=== PATIENT | female | born 2000 | race Caucasian/White ===

== ENCOUNTER 2024-04-19 20:23 | Emergency (ER) | payer OTHER, SELFPAY ==
[2024-04-19 20:54] VITALS: BP 139/88; PULSE 90; TEMP 37.1; O2SAT 98; BMI 33.7
--- NOTE | 2024-04-19 21:13 | ECG_ITS ---
[facility] Test Date: 2024-04-19 Pat Name: HEIDY LOPEZ Department: Room: - Gender: Female Nurse Practitioner: : 2000 Requested By: HELEN MONTESINOS Order Number: [id number] Reading MD: HELEN MONTESINOS Measurements Intervals [place] Rate: 79 P: 46 AR: 148 QRS: 56 QRSD: 86 T: 61 QT: 372 QTc: 406 Interpretive Statements 1100 Sinus rhythm 8102 Low QRS voltage in chest leads 9120 atypical ECG No previous ECG available for comparison Electronically Signed On 04-24-2024 6:51:41 EST by HELEN MONTESINOS
--- NOTE | 2024-04-19 21:31 | ED.GENADUL1 ---
HPI HPI - General Adult General Chief complaint: Headache Stated complaint: SOB, RIGHT SIDE TINGLING, HEADACHE Time Seen by Provider: 04/19/24 20:30 Source: patient and family (mother) Mode of arrival: walk-in Limitations: no limitations History of Present Illness HPI narrative: 23-year-old female presents to the emergency department with mother with complaint of shortness of breath, numbness, tingling. States she had laid down, was attempting to fall asleep, was on her back when she started developing shortness of breath. States history of panic attacks, but feels like this is somewhat different. Also experiencing some numbness, tingling going down her right arm and to the anterior aspect of her right moyer into her foot. + Right upper back and lower back pain. Has had some chronic back problems in the past. Also complaining of headache. Quality:?As above Severity:?Moderate Timing:?As above, shortness of breath has resolved. Still having a little numbness and tingling Context: Normal setting and activity? Modifying factors:?None Associated symptoms: As above Related Data Home Medications ?Medication ?Instructions ?Recorded ?Confirmed buspirone 15 mg tablet mg 04/19/24 desvenlafaxine succinate 100 mg mg PO 04/19/24 tablet,extended release 24 hr lisdexamfetamine 50 mg capsule mg 04/19/24 propranolol 40 mg tablet mg 04/19/24 Previous Rx's ?Medication ?Instructions ?Recorded cyclobenzaprine 5 mg tablet 5 - 10 mg (1 - 2 x 5 mg) PO TID 04/19/24 PRN muscle spasm #15 tabs lidocaine 5 % topical patch 1 patch topical DAILY #15 ea 04/19/24 (Lidoderm) prednisone 20 mg tablet 40 mg (2 x 20 mg) PO DAILY #10 tabs 04/19/24 Allergies Allergy/AdvReac Type Severity Reaction Status Date / Time No Known Drug Allergies Allergy Verified 04/19/24 20:59 Opioid HPI Opioid Management Most Recent Opioid Data: No Data to Display Review of Systems ROS Narrative CONST: Denies fever, chills HENT: Denies congestion, sore throat EYES: Denies eye redness, visual disturbance RESP: + shortness. Denies cough CV: Denies chest pain, palpitations GI: Denies abd pain, nausea, vomiting MS: + back pain. No extremity injury SKIN: Denies color change, rash NEURO: + numbness, tingling. Denies weakness PFSH PFSH Social History Little interest or pleasure in doing things: not at all Feeling down, depressed, or hopeless: not at all Exam Narrative Exam Narrative: Vital signs reviewed Nurses notes noted CONST: Nontoxic, well appearing, well nourished, in no distress.? No diaphoresis.?? HENT: normocephalic, atraumatic, moist mucous membrane, no abnormalities of the nose noted, hearing normal EYES: normal appearing conjunctiva, no apparent discharge bilat, PERRL. EOMI NECK: normal appearance CV: normal rate, regular rhythm, no murmur RESP: normal effort, speaking in complete sentences. Lung sounds clear and equal bilat.? No wheezes, rales, rhonchi MS: no edema. Patient has acute tenderness to the right trapezius near the cervical plexus. She also has paraspinal musculature tenderness to the right lower lumbar sacral spine. Dorsiflexion, plantarflexion, hallux dorsiflexion are strong and equal bilaterally. 2+ patellar and Achilles reflexes intact. SKIN: no pallor NEURO: A&Ox 3, no focal findings. Sensory intact. No peripheral or central weakness noted. Coordination intact. Cranial nerves II through XII grossly intact. PSYCH: normal mood, affect Constitutional Vital Signs, click to edit/add: Last Vital Signs Temp 98.7 F 04/19/24 20:54 Pulse 90 04/19/24 20:54 Resp 16 04/19/24 20:54 BP 139/88 04/19/24 20:54 Pulse Ox 98 04/19/24 20:54 O2 Del Method Room Air 04/19/24 20:54 Course Vital Signs Vital signs: Vital Signs Temperature 98.7 F 04/19/24 20:54 Pulse Rate 90 04/19/24 20:54 Respiratory Rate 16 04/19/24 20:54 Blood Pressure 139/88 04/19/24 20:54 Pulse Oximetry 98 04/19/24 20:54 Oxygen Delivery Method Room Air 04/19/24 20:54 Temperature 98.7 F 04/19/24 20:54 Pulse Rate 90 04/19/24 20:54 Respiratory Rate 16 04/19/24 20:54 Blood Pressure 139/88 04/19/24 20:54 Pulse Oximetry 98 04/19/24 20:54 Oxygen Delivery Method Room Air 04/19/24 20:54 Medical Decision Making MDM Narrative Medical decision making narrative: This is a pleasant 23-year-old female who presents to the emergency department with mother with complaint of shortness of breath, numbness and tingling in her right arm, leg, headache. Shortness of breath acutely started while she was laying on her back trying to fall asleep. Denies any chest pain. On arrival, afebrile, vital signs are stable. On exam, nontoxic, well-appearing patient in no distress. She is denying any shortness of breath at this time. No focal findings of weakness, sensory deficits. Cranial nerves II through XII are intact. No central or peripheral weakness. No red flags noted raise concern for cauda equina. Heart regular rate and rhythm. Lung sounds clear and equal bilaterally. EKG reveals no acute or concerning changes Labs reveal leukocytosis of 15. She has had some congestion, sinus symptoms. Denies any fever. Otherwise no physical exam findings or symptoms concerning for acute infectious process. No anemia, thrombocytopenia, electrolyte imbalance, renal impairment. test was negative. Considered urinalysis, but denies any dysuria, frequency. D-dimer was less than 0.19 Patient was given prednisone, tizanidine, reports overall improvement of her symptoms Favor pinched nerve in upper and lower back, nonspecific shortness of breath Cauda equina less likely no focal weakness, incontinence. H&P not suggestive PE less likely based on negative D-dimer and resolution of shortness of breath Arrhythmia less likely based on EKG History and Record Review Discussion with independent historian: Mother EKG performed, see below Re-Evaluation 2230 hours patient reports improvement of symptoms. Discussed with patient and mother results, plan, and disposition. They are agreeable with plan. Disposition ? The patient was discharged. Prescriptions sent to pharmacy: Flexeril, Lidoderm, prednisone Plan: Patient will be discharged to home. Condition at time of disposition: stable ? Advised to follow up with referral provider, name and number placed on discharge paperwork. Advised to return for any worsening and/or development of new, concerning signs or symptoms PLEASE NOTE: Portions of the medical record may have been produced using electronic shoes salesperson and may contain errors with respect to translation of words which may not have been identified prior to finalization of the chart. Lab Data Lab results reviewed: Yes I reviewed the patient's lab results Labs: Lab Results 04/19/24 Range/Units 21:28 WBC 15.2 H (4.0-11.0) 10^3/uL RBC 4.96 (4.20-5.40) 10^6/uL Hgb 14.5 (12.0-16.0) g/dL Hct 42.6 (36.0-48.0) % MCV 85.9 (81.0-99.0) fL MCH 29.2 (26.7-34.0) pg MCHC 34.0 (29.9-35.2) g/dL RDW 11.6 (11.0-15.0) % Plt Count 337 (150-450) 10^3/uL MPV 9.8 (9.5-13.5) fL Neut % (Auto) 70.3 (43.0-75.0) % Lymph % (Auto) 24.9 (20.5-60.0) % [place] % (Auto) 4.2 (1.7-12.0) % Eos % (Auto) 0.0 L (0.9-7.0) % Baso % (Auto) 0.2 (0.2-2.0) % Neut # (Auto) 10.7 H (1.4-6.5) 10^3/uL Lymph # (Auto) 3.8 (1.2-3.8) 10^3/uL [place] # (Auto) 0.6 (0.3-0.8) 10^3/uL Eos # (Auto) 0.0 (0.0-0.7) 10^3/uL Baso # (Auto) 0.0 (0.0-0.1) 10^3/uL Abs Immat Gran (auto) 0.06 H (0.00-0.03) 10^3/uL Imm/Tot Granulo (auto) 0.4 (0.0-0.5) % D-Dimer <0.19 (<=0.59) mg/L FEU Sodium 138 (136-145) mmol/L Potassium 3.8 (3.5-5.1) mmol/L Chloride 104 (98-107) mmol/L Carbon Dioxide 23.8 (21.0-32.0) mmol/L Anion Gap 14.0 BUN 9.0 (7.0-18.0) mg/dL Creatinine 0.71 (0.55-1.02) mg/dL Est GFR ( Amer) >60 (>=60 mL/min/1.73m^2) Est GFR (Non-Af Amer) >60 (>=60 mL/min/1.73m^2) BUN/Creatinine Ratio 12.7 Glucose 102 (74-106) mg/dL Calcium 9.3 (8.5-10.1) mg/dL Serum HCG, Qual Negative (NEGATIVE) ECG Data Attestation: I personally reviewed and interpreted this ECG as follows: ( 2120 hrs. reveals sinus rhythm at 79 bpm. No ischemia, ectopy, ischemia noted. No STEMI.) Discharge Plan Discharge Chief Complaint: Headache Clinical Impression: Acute dyspnea, Paresthesia of right arm and leg, Acute upper back pain Lower back pain Qualifiers: Chronicity: acute Back pain laterality: right Sciatica presence: without sciatica Qualified Code(s): M54.50 - Low back pain, unspecified Patient Disposition: Home, Self-Care Time of Disposition Decision: 22:39 Condition: Good Mode of Transportation: Private Vehicle Prescriptions / Home Meds: New cyclobenzaprine 5 mg tablet 5 - 10 mg PO TID PRN (Reason: muscle spasm) Qty: 15 0RF prednisone 20 mg tablet 40 mg PO DAILY Qty: 10 0RF lidocaine [Lidoderm] 5 % adhesive patch,medicated 1 patch topical DAILY Qty: 15 0RF Rx Instructions: leave on most painful area for up to 12 hrs No Action propranolol 40 mg tablet buspirone 15 mg tablet lisdexamfetamine 50 mg capsule desvenlafaxine succinate 100 mg tablet extended release 24 hr PO Print Language: Marshallese Instructions: Paresthesia (ED), Cervical Radiculopathy (ED), Dyspnea (ED), Back Pain (ED) Referrals: Bill Roberson MD [Physician] - 1 week
[2024-04-19] MEDS: TIZANIDINE HCL 4 MG TABLET PO (21:41)
[2024-04-19] MEDS: PREDNISONE 20 MG TABLET 60 MG PO (21:41)
[2024-04-19 21:47] LABS: Basophils Percent Auto 0.2 % (0.2-2.0); Hematocrit 42.6 % (36.0-48.0); Hemoglobin 14.5 g/dL (12.0-16.0); Immature Granulocytes Abs Auto 0.06 10^3/uL (0.00-0.03); Immature Granulocytes Pct Auto 0.4 % (0.0-0.5); Lymphocytes Absolute Auto 3.8 10^3/uL (1.2-3.8); Lymphocytes Percent Auto 24.9 % (20.5-60.0); Mean Corpuscular Hemoglobin 29.2 pg (26.7-34.0); Mean Corpuscular Volume 85.9 fL (81.0-99.0); Mean Platelet Volume 9.8 fL (9.5-13.5); Monocytes Absolute Auto 0.6 10^3/uL (0.3-0.8); Monocytes Percent Auto 4.2 % (1.7-12.0); Neutrophils Absolute Auto 10.7 10^3/uL (1.4-6.5); Neutrophils Percent Auto 70.3 % (43.0-75.0); Platelet Count 337 10^3/uL (150-450); Red Blood Count 4.96 10^6/uL (4.20-5.40); Red Cell Distribution Width 11.6 % (11.0-15.0); White Blood Count 15.2 10^3/uL (4.0-11.0)
[2024-04-19 21:50] VITALS: PULSE 80
[2024-04-19 22:07] LABS: BUN Creatinine Ratio 12.7; Calcium 9.3 mg/dL (8.5-10.1); Carbon Dioxide 23.8 mmol/L (21.0-32.0); Chloride 104 mmol/L (98-107); Estimated GFR (African America >60 (>=60 mL/min/1.73m^2); Estimated GFR (Non-African Ame >60 (>=60 mL/min/1.73m^2); Glucose 102 mg/dL (74-106); HCG Qualitative NEGATIVE (NEGATIVE); Internal Control Within Normal Limits; Potassium 3.8 mmol/L (3.5-5.1); Sodium 138 mmol/L (136-145)
[2024-04-19 22:10] LABS: D Dimer <0.19 mg/L FEU (<=0.59)
[2024-04-19 22:51] VITALS: BP 115/81; PULSE 104; O2SAT 99
== END 2024-04-19 22:54 | disposition home or self-care (01) ==
PROVIDERS: Physician Assistant; Emergency Provider Emergency Medicine; PCP Family Medicine
DX: R06.00 Dyspnea, unspecified (principal); R20.2 Paresthesia of skin; M54.89 Other dorsalgia
CPT/HCPCS: 36415; 80048; 84703; 85025; 85378; 93005; 99285; J7512